=== PATIENT | female | born 1995 | race African-American/Black ===

== ENCOUNTER 2024-09-03 12:25 | Emergency (ER) | payer OTHER, SELFPAY ==
[2024-09-03 12:27] VITALS: PULSE 64; TEMP 36.4; O2SAT 100; BMI 34.9
[2024-09-03 12:35] VITALS: BP 146/82
--- NOTE | 2024-09-03 12:41 | ED.GENADUL1 ---
HPI HPI - General Adult General Chief complaint: Abdominal Pain Stated complaint: ABDOMINAL PAIN Time Seen by Provider: 09/03/24 12:26 Source: patient Mode of arrival: walk-in History of Present Illness HPI narrative: 29-year-old female presents to the emergency department for a chief complaint of nausea and vomiting and abdominal pain. She has had this for 6 days. 2 days ago she was at the emergency department at another hospital and states she had blood work and a CAT scan performed and she was discharged home on Zofran. Her last period was last week. No hematemesis or fever or injury. She reports that she smokes marijuana. Related Data Home Medications ?Medication ?Instructions ?Recorded ?Confirmed alprazolam 0.5 mg tablet 0.5 mg PO TID PRN anxiety 09/03/24 09/03/24 hydrocodone 5 mg-acetaminophen 325 1 tab PO Q6H PRN pain 09/03/24 09/03/24 mg tablet ketorolac 10 mg tablet 10 mg PO Q6H PRN pain 09/03/24 09/03/24 ondansetron 4 mg disintegrating 4 mg PO Q6H PRN nausea and vomiting 09/03/24 09/03/24 tablet quetiapine 50 mg tablet 50 mg PO BID 09/03/24 09/03/24 Previous Rx's ?Medication ?Instructions ?Recorded dicyclomine 10 mg capsule 10 mg PO QID PRN abdominal pain 09/03/24 #20 caps metoclopramide HCl 10 mg tablet 10 mg PO Q6H PRN nausea and 09/03/24 (Reglan) vomiting #20 tabs Allergies Allergy/AdvReac Type Severity Reaction Status Date / Time amoxicillin (From Augmentin) Allergy Severe Vomiting Verified 09/03/24 12:32 clavulanic acid (From Allergy Severe Vomiting Verified 09/03/24 12:32 Augmentin) Review of Systems ROS Narrative A ten point review of systems is negative except as noted above. Exam Narrative Exam Narrative: Nurses note and vital signs reviewed and patient is not hypoxic. General: The patient appears uncomfortable and is holding an emesis bag Skin: Warm, dry, no pallor noted. There is no rash noted. Head: Normocephalic, atraumatic Eye: Normal conjunctiva, no drainage Ears, Nose, Mouth, and Throat: oral mucosa is moist. Nares patent. Cardiovascular: Regular Rate and Rhythm Respiratory: Patient is in no distress, no accessory muscle use, lungs are clear to auscultation, no wheezing, rales or rhonchi Back: non-tender GI: Soft and nondistended. Mild tenderness present Musculoskeletal: The patient has no evidence of calf tenderness, no pitting edema, symmetrical pulses noted bilaterally Neurological: A&O, normal speech Psychiatric: Cooperative Constitutional Vital Signs, click to edit/add: Last Vital Signs Temp 97.6 F 09/03/24 12:27 Pulse 64 09/03/24 12:27 Resp 22 H 09/03/24 12:27 BP 146/82 H 09/03/24 12:35 Pulse Ox 100 09/03/24 12:27 Course Vital Signs Vital signs: Vital Signs Temperature 97.6 F 09/03/24 12:27 Pulse Rate 64 09/03/24 12:27 Respiratory Rate 22 H 09/03/24 12:27 Pulse Oximetry 100 09/03/24 12:27 Temperature 97.6 F 09/03/24 12:27 Pulse Rate 64 09/03/24 12:27 Respiratory Rate 22 H 09/03/24 12:27 Blood Pressure 146/82 H 09/03/24 12:35 Pulse Oximetry 100 09/03/24 12:27 Medical Decision Making MDM Narrative Medical decision making narrative: Her workup here is negative WBC is 9.8. She had a CT scan of her abdomen at another hospital emergency department 2 days ago that was negative. She is being discharged home on Reglan and Bentyl. Follow-up with her PCP. Treatment diagnosis and follow-up were discussed with the patient. Differential Diagnosis Differential Diagnosis: , dehydration, cannabinoid cyclic vomiting, acute kidney injury Lab Data Lab results reviewed: Yes I reviewed the patient's lab results Labs: Lab Results 09/03/24 Range/Units 12:55 WBC 9.8 (4.0-11.0) 10^3/uL RBC 4.30 (4.20-5.40) 10^6/uL Hgb 13.6 (12.0-16.0) g/dL Hct 37.8 (36.0-48.0) % MCV 87.9 (81.0-99.0) fL MCH 31.6 (26.7-34.0) pg MCHC 36.0 H (29.9-35.2) g/dL RDW 12.1 (11.0-15.0) % Plt Count 320 (150-450) 10^3/uL MPV 10.9 (9.5-13.5) fL Neut % (Auto) 72.3 (43.0-75.0) % Lymph % (Auto) 20.2 L (20.5-60.0) % [place] % (Auto) 6.4 (1.7-12.0) % Eos % (Auto) 0.2 L (0.9-7.0) % Baso % (Auto) 0.3 (0.2-2.0) % Neut # (Auto) 7.1 H (1.4-6.5) 10^3/uL Lymph # (Auto) 2.0 (1.2-3.8) 10^3/uL [place] # (Auto) 0.6 (0.3-0.8) 10^3/uL Eos # (Auto) 0.0 (0.0-0.7) 10^3/uL Baso # (Auto) 0.0 (0.0-0.1) 10^3/uL Abs Immat Gran (auto) 0.06 H (0.00-0.03) 10^3/uL Imm/Tot Granulo (auto) 0.6 H (0.0-0.5) % Sodium 140 (136-145) mmol/L Potassium 3.8 (3.5-5.1) mmol/L Chloride 104 (98-107) mmol/L Carbon Dioxide 22.6 (21.0-32.0) mmol/L Anion Gap 17.2 BUN 18.0 (7.0-18.0) mg/dL Creatinine 0.93 (0.55-1.02) mg/dL Est GFR ( Amer) >60 (>=60 mL/min/1.73m^2) Est GFR (Non-Af Amer) >60 (>=60 mL/min/1.73m^2) BUN/Creatinine Ratio 19.4 Glucose 130 H (74-106) mg/dL Calcium 9.4 (8.5-10.1) mg/dL Serum HCG, Qual Negative (NEGATIVE) Discharge Plan Discharge Chief Complaint: Abdominal Pain Clinical Impression: Nausea & vomiting Patient Disposition: Home, Self-Care Time of Disposition Decision: 15:32 Condition: Good Mode of Transportation: Private Vehicle Prescriptions / Home Meds: New metoclopramide HCl [Reglan] 10 mg tablet 10 mg PO Q6H PRN (Reason: nausea and vomiting) Qty: 20 0RF dicyclomine 10 mg capsule 10 mg PO QID PRN (Reason: abdominal pain) Qty: 20 0RF No Action alprazolam 0.5 mg tablet 0.5 mg PO TID PRN (Reason: anxiety) hydrocodone-acetaminophen 5-325 mg tablet 1 tab PO Q6H PRN (Reason: pain) ketorolac 10 mg tablet 10 mg PO Q6H PRN (Reason: pain) ondansetron 4 mg tablet,disintegrating 4 mg PO Q6H PRN (Reason: nausea and vomiting) quetiapine 50 mg tablet 50 mg PO BID Print Language: Albanian Instructions: Acute Nausea and Vomiting (ED), Acute Abdominal Pain (ED) Referrals: BUFFY LESLIE NP [Primary Care Provider] - 1 week
[2024-09-03] MEDS: ONDANSETRON PF 4 MG/2 ML VIAL IV (13:00)
[2024-09-03] MEDS: 0.9 % SODIUM CHLORIDE 1,000 ML 1000 ML IV (13:00)
[2024-09-03 13:06] LABS: Basophils Percent Auto 0.3 % (0.2-2.0); Eosinophils Percent Auto 0.2 % (0.9-7.0); Hematocrit 37.8 % (36.0-48.0); Hemoglobin 13.6 g/dL (12.0-16.0); Immature Granulocytes Abs Auto 0.06 10^3/uL (0.00-0.03); Immature Granulocytes Pct Auto 0.6 % (0.0-0.5); Lymphocytes Percent Auto 20.2 % (20.5-60.0); Mean Corpuscular Hemoglobin 31.6 pg (26.7-34.0); Mean Corpuscular Volume 87.9 fL (81.0-99.0); Mean Platelet Volume 10.9 fL (9.5-13.5); Monocytes Absolute Auto 0.6 10^3/uL (0.3-0.8); Monocytes Percent Auto 6.4 % (1.7-12.0); Neutrophils Absolute Auto 7.1 10^3/uL (1.4-6.5); Neutrophils Percent Auto 72.3 % (43.0-75.0); Platelet Count 320 10^3/uL (150-450); Red Cell Distribution Width 12.1 % (11.0-15.0); White Blood Count 9.8 10^3/uL (4.0-11.0)
[2024-09-03 13:18] LABS: Anion Gap 17.2; BUN Creatinine Ratio 19.4; Calcium 9.4 mg/dL (8.5-10.1); Carbon Dioxide 22.6 mmol/L (21.0-32.0); Chloride 104 mmol/L (98-107); Estimated GFR (African America >60 (>=60 mL/min/1.73m^2); Estimated GFR (Non-African Ame >60 (>=60 mL/min/1.73m^2); Glucose 130 mg/dL (74-106); Potassium 3.8 mmol/L (3.5-5.1); Sodium 140 mmol/L (136-145)
[2024-09-03 13:22] LABS: HCG Qualitative NEGATIVE (NEGATIVE); Internal Control Within Normal Limits
[2024-09-03] MEDS: DICYCLOMINE HCL 20 MG/2 ML VIAL IM (13:33)
[2024-09-03] MEDS: KETOROLAC TROMETHAMINE 30 MG/ML VIAL IVP (13:34)
== END 2024-09-03 15:49 | disposition home or self-care (01) ==
PROVIDERS: Emergency Provider Emergency Medicine
DX: R11.2 Nausea with vomiting, unspecified (principal); R10.9 Unspecified abdominal pain
CPT/HCPCS: 36415; 80048; 84703; 85025; 96361; 96372; 96374; 96375; 99284; J0500; J1885; J2405

== ENCOUNTER 2025-01-06 16:35 | Emergency (ER) | payer OTHER, SELFPAY ==
[2025-01-06 16:39] VITALS: BP 153/100; PULSE 52; TEMP 36.5; O2SAT 100; BMI 33.1
--- NOTE | 2025-01-06 16:41 | CT_ITS ---
The [address] [address] Patient Name: NAVJOT ASCENCIO MRN: [id number] date: 1995 Sex: F Assigned Patient Location: ED.MAIN Current Patient Location: Accession/Order Number: [id number] Exam Date: 01/06/2025 17:17 Report Date: 01/06/2025 19:00 At the request of: MICKI AHMADI Procedure: CT facial bones wo con CT facial bones wo con 01/06/2025 5:35 PM SIGNS AND SYMPTOMS: ^fall with head injury TECHNIQUE: Multidetector CT axial slices of the facial bones were obtained. Helical, sagittal, coronal, and 3-D reconstructions were performed and viewed on a separate workstation and reviewed to further define anatomy and possible pathology. CT was performed with one or more of the following dose reduction techniques: Automated exposure control, adjustment of the mA and/or kV according to patient size, or use of iterative reconstruction technique. COMPARISON: None. FINDINGS: Fracture: None. Paranasal sinuses and mastoids: There is mucosal thickening in the maxillary sinuses and ethmoid air cells. Soft tissue swelling: None. Globes: Intact. Upper aerodigestive tract: Within normal limits. Joints: Intact. Temporal mandibular joints: Intact. Infratemporal fossa: Within normal limits. CT/CT facial bones wo con IMPRESSION: No evidence of fracture or dislocation. Impression dictated by: Sunny Ordoñez M.D. 01/06/2025 7:00 PM Dictation Location: [place] [address] Electronically authenticated by: [id number] Y Date: 01/06/2025 19:00
--- NOTE | 2025-01-06 16:41 | CT_ITS ---
The [address] [address] Patient Name: NAVJOT ASCENCIO MRN: [id number] date: 1995 Sex: F Assigned Patient Location: ED.MAIN Current Patient Location: Accession/Order Number: [id number] Exam Date: 01/06/2025 17:17 Report Date: 01/06/2025 18:57 At the request of: MICKI AHMADI Procedure: CT head/brain wo con CT head/brain wo con 01/06/2025 5:35 PM SIGNS AND SYMPTOMS: Headache, swelling, fall TECHNIQUE:Multi-detector CT axial slices of the brain were obtained without IV contrast. CT was performed with one or more of the following dose reduction techniques: Automated exposure control, adjustment of the mA and/or kV according to patient size, or use of iterative reconstruction technique. COMPARISON: None. FINDINGS: There is no shift of the midline structures, acute intracranial bleeding, mass effects, or evidence of acute ischemia. The ventricular system is normal in size. The brainstem and the cerebellum are unremarkable. The visualized intraorbital contents, the visualized paranasal sinuses, and the infratemporal soft tissues show no acute abnormality. The osseous structures in the skull base and the calvarium show no abnormality. CT/CT head/brain wo con IMPRESSION: Normal noncontrasted CT brain. Impression dictated by: Sunny Ordoñez M.D. 01/06/2025 6:57 PM Dictation Location: [place] [address] Electronically authenticated by: [id number] Y Date: 01/06/2025 18:57
--- NOTE | 2025-01-06 16:44 | ED_ITS ---
HPI HPI - General Adult General Chief complaint: Nausea/Vomiting/Diarrhea Stated complaint: FALL Time Seen by Provider: 01/06/25 16:37 Source: patient Mode of arrival: walk-in Limitations: no limitations History of Present Illness HPI narrative: Patient presents to the emergency department with complaints of headache, swelling to the nasal bridge., Nausea, vomiting and an episode of diarrhea. Patient admits to EtOH consumption last night and falling off of a porch. Patient had struck her face on the ground and does state that she had epistaxis following the fall but that has subsequently resolved. Patient states that since awakening this morning she has not been able to tolerate p.o. without vomiting, stating multiple episodes of vomiting despite the use of oral Zofran she had at home. Patient does complain of headache and pain to the nasal bridge as well as mild soft tissue swelling to the ulnar aspect of the left forearm with small overlying abrasion. Patient denies any neck pain or back pain. Patient denies any chest pain, shortness of breath or abdominal pain associated with the symptoms. No hematemesis, melena or hematochezia Onset (ago): hour(s) Location: Reports head and face Severity: moderate Quality: Reports aching Pain Consistency: Reports constant Relieving factors: Reports none Associated symptoms: Reports headaches and nausea/vomiting Related Data Home Medications ?Medication ?Instructions ?Recorded ?Confirmed alprazolam 0.5 mg tablet 0.5 mg PO TID PRN anxiety 09/03/24 hydrocodone 5 mg-acetaminophen 325 1 tab PO Q6H PRN pa in 09/03/24 09/03/24 mg tablet ketorolac 10 mg tablet 10 mg PO Q6H PRN pain 09/03/24 ondansetron 4 mg disintegrating 4 mg PO Q6H PRN nausea and vomiting 09/03/24 09/03/24 tablet quetiapine 50 mg tablet 50 mg PO BID 09/03/24 Previous Rx's ?Medication ?Instructions ?Recorded dicyclomine 10 mg capsule 10 mg PO QID PRN abdominal p ain 09/03/24 #20 caps metoclopramide HCl 10 mg tablet 10 mg PO Q6H PRN nause a and 09/03/24 (Reglan) vomiting #20 tabs prochlorperazine maleate 5 mg 5 mg PO Q8H PRN nausea a nd 01/06/25 tablet (Compazine) vomiting 10 days #10 tabs Allergies Allergy/AdvReac Type Severity Reaction Status Date / Time amoxicillin (From Augmentin) Allergy Severe Vomiting Verified 01/06/25 16:46 clavulanic acid (From Allergy Severe Vomiting Verified 01/06/25 16:46 Augmentin) Opioid HPI Opioid Management Most Recent Opioid Data: 2 Last Pain Scale 5 Today, 16:59 Review of Systems 2 ROS0 Status of ROS 10 or more systems reviewed and unremark able except as noted in history and below Eyes Denies: change in vision or blurry vision Cardiovascular Denies: chest pain Respiratory Denies: shortness of breath Gastrointestinal Reports: nausea and vomiting Musculoskeletal Reports: extremity swelling (Ecchymosis and abrasion to lateral arm); Denies: neck pain PFSH PFSH Social History Little interest or pleasure in doing things: not at all Feeling down, depressed, or hopeless: not at all Exam Constitutional Vital Signs, click to edit/add: Last Vital Signs Temp 97.7 F 01/06/25 16:39 Pulse 57 L 01/06/25 18:26 Resp 16 01/06/25 18:26 BP 107/72 01/06/25 18:26 Pulse Ox 100 01/06/25 18:26 O2 Del Method Room Air 01/06/25 18:26 Documenting provider has reviewed patient's vital signs: yes Common normals: no apparent distress, average body habitus, oriented x3, no limitations, healthy appearing and alert General appearance: cooperative [facility] Common normals: normocephalic Face and sinus: facial ecchymosis Face and sinus images: 2 1. Nose: no epistaxis Eye Common normals: PERRL and EOMs intact bilaterally Neck & C-Spine Common normals: full ROM Cervical spine: cervical ROM normal; no pain with cervical ROM, no cervical spine tenderness and no step off deformity Respiratory Common normals: normal respiratory effort Cardio Common normals: regular rate Neuro Common normals: oriented x3, CN's II-XII intact bilaterally, moves all extremities, no focal motor deficits and no sensory deficits noted Psych Mood and affect: anxious Course Vital Signs Vital signs: Vital Signs Temperature 97.7 F 01/06/25 16:39 Pulse Rate 52 L 01/06/25 16:39 Respiratory Rate 20 01/06/25 16:39 Blood Pressure 153/100 H 01/06/25 16:39 Pulse Oximetry 100 01/06/25 16:39 Oxygen Delivery Method Room Air 01/06/25 16:39 Temperature 97.7 F 01/06/25 16:39 Pulse Rate 57 L 01/06/25 18:26 Respiratory Rate 16 01/06/25 18:26 Blood Pressure 107/72 01/06/25 18:26 Pulse Oximetry 100 01/06/25 18:26 Oxygen Delivery Method Room Air 01/06/25 18:26 Medical Decision Making MDM Narrative Medical decision making narrative: Patient presented to the emergency department following a head injury well drinking alcohol last night. Given that patient complained of headache with associated nausea and vomiting, patient was started on IV fluids, antiemetics and CT head/maxillofacial will be obtained to rule out ICH, fractures or other acute anomalies. CT of the head and maxillofacial interpreted by myself is negative. Patient had improved symptoms after IV meds and fluids. She will be discharged home with supportive therapy and referred to PCP for follow-up Lab Data Lab results reviewed: Yes I reviewed the patient's lab results Labs: Lab Results 01/06/25 Range/Units 16:50 WBC 10.9 (4.0-11.0) 10^3/uL RBC 3.80 L (4.20-5.40) 10^6/uL Hgb 12.0 (12.0-16.0) g/dL Hct 33.6 L (36.0-48.0) % MCV 88.4 (81.0-99.0) fL MCH 31.6 (26.7-34.0) pg MCHC 35.7 H (29.9-35.2) g/dL RDW 12.3 (11.0-15.0) % Plt Count 292 (150-450) 10^3/uL MPV 10.5 (9.5-13.5) fL Neut % (Auto) 87.7 H (43.0-75.0) % Lymph % (Auto) 8.6 L (20.5-60.0) % [place] % (Auto) 3.2 (1.7-12.0) % Eos % (Auto) 0.0 L (0.9-7.0) % Baso % (Auto) 0.2 (0.2-2.0) % Neut # (Auto) 9.5 H (1.4-6.5) 10^3/uL Lymph # (Auto) 0.9 L (1.2-3.8) 10^3/uL [place] # (Auto) 0.4 (0.3-0.8) 10^3/uL Eos # (Auto) 0.0 (0.0-0.7) 10^3/uL Baso # (Auto) 0.0 (0.0-0.1) 10^3/uL Abs Immat Gran (auto) 0.03 (0.00-0.03) 10^3/uL Imm/Tot Granulo (auto) 0.3 (0.0-0.5) % Sodium 138 (136-145) mmol/L Potassium 3.4 L (3.5-5.1) mmol/L Chloride 105 (98-107) mmol/L Carbon Dioxide 21.6 (21.0-32.0) mmol/L Anion Gap 14.8 BUN 10.0 (7.0-18.0) mg/dL Creatinine 0.73 (0.55-1.02) mg/dL Est GFR ( Amer) >60 (>=60 mL/min/1.73m^2) Est GFR (Non-Af Amer) >60 (>=60 mL/min/1.73m^2) BUN/Creatinine Ratio 13.7 Glucose 133 H (74-106) mg/dL Calcium 8.9 (8.5-10.1) mg/dL Total Bilirubin 1.1 H (0.2-1.0) mg/dL AST 19 (15-37) U/L ALT 25 (14-59) U/L Alkaline Phosphatase 71 (46-116) U/L Total Protein 8.1 (6.4-8.2) g/dL Albumin 4.2 (3.4-5.0) g/dL Globulin 3.9 g/dL Albumin/Globulin Ratio 1.1 Lipase 13.0 L (16.0-77.0) U/L Imaging Data CT scan - head: Radiologist's impression: ITS Impressions Facial Bones CT 01/06/25 16:41 IMPRESSION: No evidence of fracture or dislocation. Impression dictated by: Sunny Ordoñez M.D. 01/06/2025 7:00 PM Dictation Location: [place] Electronically authenticated by: [id number] Y Date: 01/06/2025 19:[address] 01/06/25 16:41 IMPRESSION: Normal noncontrasted CT brain. Impression dictated by: Sunny Ordoñez M.D. 01/06/2025 6:57 PM Dictation Location: [facility] Electronically authenticated by: [id number] Y Date: 01/06/2025 18:57 Discharge Plan Discharge Chief Complaint: Nausea/Vomiting/Diarrhea Clinical Impression: Nausea & vomiting, Contusion of nose, CHI (closed head injury) Patient Disposition: Home, Self-Care Time of Disposition Decision: 19:17 Condition: Good Mode of Transportation: Private Vehicle Prescriptions / Home Meds: New prochlorperazine maleate [Compazine] 5 mg tablet 5 mg PO Q8H PRN (Reason: nausea and vomiting) 10 Days Qty: 10 0RF No Action alprazolam 0.5 mg tablet 0.5 mg PO TID PRN (Reason: anxiety) hydrocodone-acetaminophen 5-325 mg tablet 1 tab PO Q6H PRN (Reason: pain) ketorolac 10 mg tablet 10 mg PO Q6H PRN (Reason: pain) ondansetron 4 mg tablet,disintegrating 4 mg PO Q6H PRN (Reason: nausea and vomiting) quetiapine 50 mg tablet 50 mg PO BID metoclopramide HCl [Reglan] 10 mg tablet 10 mg PO Q6H PRN (Reason: nausea and vomiting) Qty: 20 0RF dicyclomine 10 mg capsule 10 mg PO QID PRN (Reason: abdominal pain) Qty: 20 0RF Print Language: Romansh Instructions: Head Injury (ED) Referrals: BUFFY LESLIE NP [Primary Care Provider] - 1 week
[2025-01-06] MEDS: FAMOTIDINE/PF 20 MG/2 ML VIAL IV (16:52)
[2025-01-06] MEDS: 0.9 % SODIUM CHLORIDE 1,000 ML 1000 ML IV (16:54)
[2025-01-06 16:55] LABS: Hematocrit 33.6 % (36.0-48.0); Hemoglobin 12.0 g/dL (12.0-16.0); Immature Granulocytes Abs Auto 0.03 10^3/uL (0.00-0.03); Immature Granulocytes Pct Auto 0.3 % (0.0-0.5); Lymphocytes Absolute Auto 0.9 10^3/uL (1.2-3.8); Mean Corpuscular HGB Conc 35.7 g/dL (29.9-35.2); Mean Corpuscular Hemoglobin 31.6 pg (26.7-34.0); Mean Corpuscular Volume 88.4 fL (81.0-99.0); Platelet Count 292 10^3/uL (150-450); Red Blood Count 3.80 10^6/uL (4.20-5.40); White Blood Count 10.9 10^3/uL (4.0-11.0)
[2025-01-06 17:04] VITALS: O2SAT 100
[2025-01-06 17:11] LABS: Alanine Aminotransferase 25 U/L (14-59); Albumin Globulin Ratio 1.1; Albumin Level 4.2 g/dL (3.4-5.0); Alkaline Phosphatase 71 U/L (46-116); Anion Gap 14.8; Aspartate Amino Transferase 19 U/L (15-37); Blood Urea Nitrogen 10.0 mg/dL (7.0-18.0); Calcium 8.9 mg/dL (8.5-10.1); Carbon Dioxide 21.6 mmol/L (21.0-32.0); Chloride 105 mmol/L (98-107); Estimated GFR (African America >60 (>=60 mL/min/1.73m^2); Estimated GFR (Non-African Ame >60 (>=60 mL/min/1.73m^2); Globulin 3.9 g/dL; Glucose 133 mg/dL (74-106); Lipase 13.0 U/L (16.0-77.0); Potassium 3.4 mmol/L (3.5-5.1); Sodium 138 mmol/L (136-145); Total Protein 8.1 g/dL (6.4-8.2)
[2025-01-06] MEDS: DIPHENHYDRAMINE HCL 50 MG/ML VIAL 25 MG IVP (17:50)
[2025-01-06] MEDS: PROCHLORPERAZINE 10 MG/2 ML VIAL IV (17:50)
[2025-01-06 18:26] VITALS: BP 107/72; PULSE 57; O2SAT 100
== END 2025-01-06 19:24 | disposition home or self-care (01) ==
PROVIDERS: Physician Assistant; Emergency Provider Emergency Medicine
DX: S09.8XXA Other specified injuries of head, initial encounter (principal); S00.33XA Contusion of nose, initial encounter; R11.2 Nausea with vomiting, unspecified; W17.89XA Other fall from one level to another, initial encounter
CPT/HCPCS: 36415; 70450; 70486; 76376; 80053; 81001; 83690; 85025; 96361; 96374; 96375; 99285; J0780; J1200; J2405; J3490

== ENCOUNTER 2025-01-08 13:21 | Emergency (ER) | payer OTHER, SELFPAY ==
--- OUTSIDE RECORDS SUMMARY | 2025-01-08 13:28 | XMS_ITS | Clinical Summary ---
Author Organization [facility] tem Address [id number] [address] [place] [address] Care Team Providers Care Certified Lactation Educator Name Role Phone Kike Heck [employer]ATIONARY STEAM ENGINEER-ENGINEERING PROGRAM MANAGER Primary Care Provider [phone] Allergies Active Allergy Reactions Criticality Noted Date Comments Amoxicillin-Pot Clavulanate 08/28/19 21 Penicillins 08/27/2020 Medications clonazePAM (KlonoPIN) 0.5 mg tablet Take 1 tablet (0.5 mg total) by mouth 2 (two) times a day as needed for anxiety. Active ketorolac (TORADOL) 10 mg tablet Take 1 tablet (10 mg total) by mouth every 6 (six) hours as needed for pain. 20 tablet 5 Active naloxone (NARCAN) 4 mg/actuation spray,non-aeros ol nasal spray Administer 1 spray (4 mg total) into alternating nostrils as needed for opioid reversal. 5 Active Social History Tobacco Use Types Packs/Day Years Used Date Smoking Tobacco: Former Smokeless Tobacco: Never Tobacco Cessation:Counseling Given: Not Answered Alcohol Use Standard Drinks/Week Comments Yes 0 (1 standard drink = 0.6 oz pur e alcohol) occasional Childcare Answer Date Recorded Childcare Unknown 09/21/2018 Employment Answer Date Recorded Employment Unknown 09/21/2018 Comments No Sex and Gender Information Value Date Recorded Sex Assigned at Not on file Legal Sex Female 11:50 AM EDT Gender Identity Not on file Sexual Orientation Not on file Last Filed Vital Signs Vital Sign Reading Time Taken Comments Blood Pressure 145/70 09/07/2024 9:30 AM EDT Pulse 65 09/07/2024 6:52 AM EDT Temperature 35.8 C (96.5 F) 09/07/2024 6:52 AM EDT Respiratory Rate 26 09/07/2024 6:52 AM EDT Oxygen Saturation 90% 09/07/2024 8:45 AM EDT Inhaled Oxygen Concentration - - Weight 95.3 kg (210 lb) 09/07/2024 6:52 AM EDT Height 167.6 cm (5' 6 ) 09/07/2024 6:52 AM EDT Body Mass Index 33.89 09/07/2024 6:52 AM EDT Plan of Treatment Health Maintenance Due Date Last Done Comments Depression Screening 2007 Adult BMI Follow Up Plan 2013 Pap Smear 02/26/2016 Influenza Vaccine 12/11/2024 02/20/2016, , 04/20/2014, Additional history exists Adult BMI Screening 09/07/2025 09/07/2024 Tobacco Screening 09/07/2025 09/07/2024 DTaP,Tdap and Td Vaccines (1 1 - Td or Tdap) 03/25/2034 03/25/2024, 02/03/2021, 12/29/2017, Additional history exists Medical Devices Not on file Insurance [facility] MEDICA[facility] Care Teams Certified Lactation Educator Relationship Specialty Start Date End Date Kike Heck, STATIONARY STEAM ENGINEER-ENGINEERING PROGRAM MANAGER [address] [place] [address] PCP - General Family Medicine 08/27/20
[2025-01-08 13:30] VITALS: BP 173/82; PULSE 52; TEMP 36.7; O2SAT 100; BMI 74.7
[2025-01-08] MEDS: FAMOTIDINE/PF 20 MG/2 ML VIAL IV (14:15)
[2025-01-08] MEDS: 0.9 % SODIUM CHLORIDE 1,000 ML 1000 ML IV (14:15)
[2025-01-08 14:17] LABS: Hematocrit 33.5 % (36.0-48.0); Hemoglobin 11.9 g/dL (12.0-16.0); Immature Granulocytes Abs Auto 0.05 10^3/uL (0.00-0.03); Immature Granulocytes Pct Auto 0.5 % (0.0-0.5); Lymphocytes Absolute Auto 1.3 10^3/uL (1.2-3.8); Mean Corpuscular HGB Conc 35.5 g/dL (29.9-35.2); Mean Corpuscular Hemoglobin 31.2 pg (26.7-34.0); Mean Corpuscular Volume 87.9 fL (81.0-99.0); Platelet Count 306 10^3/uL (150-450); Red Blood Count 3.81 10^6/uL (4.20-5.40); White Blood Count 9.3 10^3/uL (4.0-11.0)
[2025-01-08 14:35] LABS: Alanine Aminotransferase 20 U/L (14-59); Albumin Globulin Ratio 1.1; Albumin Level 4.0 g/dL (3.4-5.0); Alkaline Phosphatase 66 U/L (46-116); Anion Gap 16.2; Aspartate Amino Transferase 14 U/L (15-37); Blood Urea Nitrogen 13.0 mg/dL (7.0-18.0); Calcium 8.8 mg/dL (8.5-10.1); Carbon Dioxide 21.0 mmol/L (21.0-32.0); Chloride 107 mmol/L (98-107); Estimated GFR (African America >60 (>=60 mL/min/1.73m^2); Estimated GFR (Non-African Ame >60 (>=60 mL/min/1.73m^2); Globulin 3.5 g/dL; Glucose 125 mg/dL (74-106); Potassium 3.2 mmol/L (3.5-5.1); Sodium 141 mmol/L (136-145); Total Protein 7.5 g/dL (6.4-8.2)
[2025-01-08 14:40] LABS: Lipase 29.0 U/L (16.0-77.0)
[2025-01-08] MEDS: ONDANSETRON 4 MG RAPDIS TABLET SL (15:02)
[2025-01-08] MEDS: DIPHENHYDRAMINE HCL 25 MG CAPSULE PO (15:17)
--- NOTE | 2025-01-08 17:31 | ED_ITS ---
HPI HPI - General Adult General Chief complaint: Nausea/Vomiting/Diarrhea Stated complaint: VOMITING Time Seen by Provider: 01/08/25 13:29 Source: patient Mode of arrival: walk-in History of Present Illness HPI narrative: Patient is a 29-year-old female presenting to the emergency department for evaluation of vomiting. Patient states that she had episode just like this 2 days ago, at which time she was seen in the ED and given antiemetics. She states she felt better, however over last 24 hours, her symptoms returned. She states he has been having persistent nausea and vomiting. She has had no diarrhea or constipation. Her last marijuana use was 2 weeks ago. She denies being . She denies any chest pain or shortness of breath. No fevers or chills. Related Data Home Medications ?Medication ?Instructions ?Recorded ?Confirmed atomoxetine 18 mg capsule mg PO 01/08/25 clonazepam 0.5 mg tablet mg 01/08/25 Allergies Allergy/AdvReac Type Severity Reaction Status Date / Time amoxicillin (From Augmentin) Allergy Severe Vomiting Verified 01/08/25 13:28 clavulanic acid (From Allergy Severe Vomiting Verified 01/08/25 13:28 Augmentin) Opioid HPI Opioid Management Most Recent Opioid Data: Last Pain Scale 5 01/06/25, 16:59 Review of Systems ROS Status of ROS 10 or more systems reviewed and unremark able except as noted in history and below PFSH PFSH Social History Little interest or pleasure in doing things: not at all Feeling down, depressed, or hopeless: not at all Exam Narrative Exam Narrative: CONSTITUTIONAL: Patient is sitting upright in a chair, dry heaving into an emesis basin, follow commands and answering questions appropriately SKIN: Was warm and dry. EYES: Sclera white EARS, NOSE, THROAT: Moist oral mucosa RESPIRATORY: Clear to auscultation bilaterally, no wheezes, crackles, or stridor, no use of accessory muscles CARDIOVASCULAR: Normal rate and regular rhythm. There is no S3, S4, murmur, rub GASTROINTESTINAL: Mild tenderness to palpation of the epigastrium. No rebound tenderness or guarding. No De [place] Santos sign. MUSCULOSKELETAL: No peripheral edema. NEUROLOGIC: Patient is awake and alert. Constitutional Vital Signs, click to edit/add: Last Vital Signs Temp 98.0 F 01/08/25 13:30 Pulse 52 L 01/08/25 13:30 Resp 16 01/08/25 13:30 BP 173/82 H 01/08/25 13:30 Pulse Ox 100 01/08/25 13:30 O2 Del Method Room Air 01/08/25 13:30 Course Vital Signs Vital signs: Vital Signs Temperature 98.0 F 01/08/25 13:30 Pulse Rate 52 L 01/08/25 13:30 Respiratory Rate 16 01/08/25 13:30 Blood Pressure 173/82 H 01/08/25 13:30 Pulse Oximetry 100 01/08/25 13:30 Oxygen Delivery Method Room Air 01/08/25 13:30 Temperature 98.0 F 01/08/25 13:30 Pulse Rate 52 L 01/08/25 13:30 Respiratory Rate 16 01/08/25 13:30 Blood Pressure 173/82 H 01/08/25 13:30 Pulse Oximetry 100 01/08/25 13:30 Oxygen Delivery Method Room Air 01/08/25 13:30 Medical Decision Making MDM Narrative Medical decision making narrative: Patient is a 29-year-old female presenting to the emergency department for evaluation of nausea and vomiting. Vital signs on arrival are significant for hypertension, though this is likely related to her acute vomiting. She is otherwise afebrile and hemodynamically stable. Examination as noted above. My clinical impression is that the patient is having episode of cyclical vomiting, which she was treated for a couple days ago here in the ED. Patient's exam is not consistent with surgical etiologies of abdominal pain such as appendicitis, cholecystitis, or perforated viscus. IV was established and laboratory studies were obtained to rule out underlying electrolyte/metabolic derangement. She was given IV droperidol, 1 L bolus normal saline, and 20 mg IV famotidine for symptomatic treatment. Laboratory studies were unremarkable. No significant electrolyte or metabolic derangement. No evidence of acute kidney injury. No significant anemia, leukocytosis, or thrombocytopenia. No transaminitis or hyperbilirubinemia. test negative. Lipase nonelevated. On reevaluation, patient states she feels significant improved and is comfortable being discharged home. I do believe the patient is stable for discharge. Patient's presentation is most likely consistent with cyclical v omiting. They were instructed to follow up with PCP for further care. Return precautions were given including any new or worsening symptoms. Patient understands and agrees to the plan. FINAL IMPRESSION: #Acute nausea and vomiting, improved DISPOSITION: Discharged home CONDITION: Fair Medical Records Medical records reviewed: Yes I reviewed the patient's medical records Lab Data Lab results reviewed: Yes I reviewed the patient's lab results Labs: Lab Results 01/08/25 Range/Units 14:00 WBC 9.3 (4.0-11.0) 10^3/uL RBC 3.81 L (4.20-5.40) 10^6/uL Hgb 11.9 L (12.0-16.0) g/dL Hct 33.5 L (36.0-48.0) % MCV 87.9 (81.0-99.0) fL MCH 31.2 (26.7-34.0) pg MCHC 35.5 H (29.9-35.2) g/dL RDW 12.3 (11.0-15.0) % Plt Count 306 (150-450) 10^3/uL MPV 10.3 (9.5-13.5) fL Neut % (Auto) 81.6 H (43.0-75.0) % Lymph % (Auto) 13.6 L (20.5-60.0) % Jerome % (Auto) 4.0 (1.7-12.0) % Eos % (Auto) 0.0 L (0.9-7.0) % Baso % (Auto) 0.3 (0.2-2.0) % Neut # (Auto) 7.6 H (1.4-6.5) 10^3/uL Lymph # (Auto) 1.3 (1.2-3.8) 10^3/uL Jerome # (Auto) 0.4 (0.3-0.8) 10^3/uL Eos # (Auto) 0.0 (0.0-0.7) 10^3/uL Baso # (Auto) 0.0 (0.0-0.1) 10^3/uL Abs Immat Gran (auto) 0.05 H (0.00-0.03) 10^3/uL Imm/Tot Granulo (auto) 0.5 (0.0-0.5) % Sodium 141 (136-145) mmol/L Potassium 3.2 L (3.5-5.1) mmol/L Chloride 107 (98-107) mmol/L Carbon Dioxide 21.0 (21.0-32.0) mmol/L Anion Gap 16.2 BUN 13.0 (7.0-18.0) mg/dL Creatinine 0.61 (0.55-1.02) mg/dL Est GFR ( Amer) >60 (>=60 mL/min/1.73m^2) Est GFR (Non-Af Amer) >60 (>=60 mL/min/1.73m^2) BUN/Creatinine Ratio 21.3 Glucose 125 H (74-106) mg/dL Calcium 8.8 (8.5-10.1) mg/dL Total Bilirubin 1.0 (0.2-1.0) mg/dL AST 14 L (15-37) U/L ALT 20 (14-59) U/L Alkaline Phosphatase 66 (46-116) U/L Total Protein 7.5 (6.4-8.2) g/dL Albumin 4.0 (3.4-5.0) g/dL Globulin 3.5 g/dL Albumin/Globulin Ratio 1.1 Lipase 29.0 (16.0-77.0) U/L Discharge Plan Discharge Chief Complaint: Nausea/Vomiting/Diarrhea Clinical Impression: Nausea & vomiting Patient Disposition: Home, Self-Care Time of Disposition Decision: 14:53 Condition: Good Mode of Transportation: Private Vehicle Prescriptions / Home Meds: No Action clonazepam 0.5 mg tablet atomoxetine 18 mg capsule PO Print Language: Icelandic Instructions: Acute Nausea and Vomiting (ED) Referrals: BUFFY LESLIE NP [Primary Care Provider] - 1 week Discharge Date/Time: 01/08/25 15:21
== END 2025-01-08 15:21 | disposition home or self-care (01) ==
PROVIDERS: Emergency Provider Student in an Organized Health Care Education/Training Program
DX: R11.2 Nausea with vomiting, unspecified (principal)
CPT/HCPCS: 36415; 80053; 83690; 85025; 96361; 96374; 96375; 99285; J3490; Q0162